=== PATIENT | female | born 1930 | race Caucasian/White ===

== ENCOUNTER → 2017-03-19 | Outpatient (CLI) | payer MEDICARE, OTHER ==
[~2017-03-19] MED LIST: ACTOS PO; ALDACTONE100 MG PO; ALDACTONE25 MG PO; ASPIRIN81 M2 PO; ATACAND PO; BUSPAR PO; BUSPAR5 M1 PO; CALTRATE PLUS T1 TAB PO; CLOPIDOGREL75 MG PO; DIPENTUM250 MG PO; ESOMEPRAZOLE MA40 MG; FLEXERIL PO; FOSAMAX PO; FUROSEMIDE40 MG PO; GLUCOTROL PO; HCTZ PO; IBUPROFEN PO; IMODIUM A-D2 M2; LANTUS SOL100 UNIT/1; LANTUS100 U/ML SUBQ; LASIX PO; LIPITOR PO; LISINOPRIL20 MG PO; LODINE400 MG PO; LOPRESSOR PO; METFORMIN HCL500 M1 PO; METFORMIN PO; NABUMETONE PO; NEXIUM 24HR20 MG PO; NEXIUM PO; NORVASC PO; NORVASC2.5 MG PO; NOVOLOG FL100 UNIT/1; PEPCID40 MG PO; PLAVIX PO; PREMARIN PO; PRINIVIL40 MG PO; TESSALON PERLE100 M1 PO; TOPROL XL PO; VITAMIN D1000 UNI1 PO; VITAMIN D1000 UNI2 PO; VITAMIN E100 UNI3; VITAMIN E800 UNIT PO; ZYRTEC10 M1 PO; ZYVOX600 MG PO; [UNRECOGNIZED DRUG - OTHER]
--- NOTE | ~2017-03-19 | CR151 ---
[facility] A Service of [facility] & [facility] RADIOLOGY TEXT RESULTS PATIENT: ABDOUL EPPERSON LOCATION: [facility] : 32 UNIT #: [id number] AGE: [address]: eSverino Dash MD SEX: F ORDER DR: [id number] [facility] [address] [place], [place] [address] [id number] O MR#: [id number] #: [id number] NAME: ABDOUL EPPERSON. : 1930 SEX: F STUDY DATE/TIME: 03/19/2017 11:12 UNIT: [facility] ROOM: STUDY DESCRIPTION: CR Hip Min 2 Views Rt Attending Physician: Severino Dash M.D. Ordering Physician: Severino Dash M.D. MEDICAL IMAGING REPORT This report is preliminary unless electronic signature is present EXAM Right hip 2 views HISTORY Right hip pain after fall 1 week ago. FINDINGS 2 views of the right hip demonstrate mild degenerative arthritis. Satisfactory hip alignment. No fracture or dislocation. Surgical clips overlie the right pelvis. IMPRESSION No acute findings the right hip. Mild degenerative arthritis. Dictated by... Parmjit Tran M.D. THIS IS AN ELECTRONICALLY VERIFIED REPORT Parmjit Tran M.D. at 03/19/2017 11:13 PM DFL/pcl TD: 03/19/2017 22:52 JOB #: [id number] MEDICAL IMAGING REPORT Page 1 of 1 COPY
== END | disposition home or self-care (01) ==
LOC: CRAD 10:52
DX: M25.551 Pain in right hip (principal); M16.11 Unilateral primary osteoarthritis, right hip
CPT/HCPCS: 73502

== ENCOUNTER → 2017-06-04 | Outpatient (CLI) | payer MEDICARE, OTHER ==
--- NOTE | ~2017-06-04 | MY26 ---
[facility] A Service of [facility] & [facility] RADIOLOGY TEXT RESULTS PATIENT: ABDOUL EPPERSON LOCATION: [facility] : 32 UNIT #: [id number] AGE: [address]: Severino Dash MD SEX: F ORDER DR: [id number] [facility] [address] [place], [place] [address] [id number] O MR#: [id number] Acc #: [id number] NAME: ABDOUL EPPERSON. : 1930 SEX: F STUDY DATE/TIME: 06/04/2017 10:28 UNIT: [facility] ROOM: STUDY DESCRIPTION: [facility] DIAGNOSTIC W/ CAD BILAT Attending Physician: Severino Dash M.D. Referring Physician: Severino Dash M.D. Ordering Physician: Severino Dash M.D. Primary Care Physician: Severino Dash M.D. MEDICAL IMAGING REPORT This report is preliminary unless electronic signature is present EXAMINATION Bilateral digital diagnostic mammogram with CAD. DATE 06/04/2017 HISTORY 86-year-old female with complaints of intermittent right breast palpable abnormality for 1 month. Previous history of fibrocystic changes of breast with previous history of 2 right breast biopsies, benign. COMPARISON Bilateral digital screening mammogram 08/02/2015, 07/30/2014. FINDINGS CC, MLO and true ML views were obtained of each breast utilizing digital technique and reviewed with an FDA-approved CAD device. Linear markers were placed over the right breast denoting surgical scars. Heterogeneously dense fibroglandular tissue is present bilaterally. A triangular marker was placed over the anterior right breast denoting the patient's site of palpable complaint. Immediately adjacent to this marker, there is a new approximately 1 cm nodular density close to the 12 o'clock axis subareolar region. Spot compression was performed of the right breast in the CC, and MLO planes, and this nodule becomes more defined, demonstrating irregular margins but no associated architectural distortion. Extensive but benign appearing calcifications are present within each breast, secretory, vascular, and round in morphology. No focal suspicious clustered microcalcification is seen. Of note, the secretory STS. [facility] A Service of [facility] & [facility] RADIOLOGY TEXT RESULTS PATIENT: ABDOUL EPPERSON LOCATION: [facility] : 32 UNIT #: [id number] AGE: [address]: Severino Dash MD SEX: F ORDER DR: calcifications in each breast appear increased since 2014. No abnormal skin thickening or nipple retraction is identified on either side. Targeted diagnostic right breast ultrasound was performed on this same date. In the 12 o'clock axis of the right breast near the site of patient's palpable complaint, an approximating 1.0 cm hypoechoic solid-appearing nodule is demonstrated. It demonstrates irregular margins, and appears to have a faint calcification embedded within it. This nodule is located within 3 mm of the superficial skin surface. There does appear to be a tiny hypoechoic solid satellite nodule immediately adjacent to it measuring 3 mm, also. These findings are suspicious for malignancy and correspond to the mammographic finding. Left breast mammogram today demonstrates stable fibronodular density in the lateral hemisphere compared to several prior exams. CC, MLO and true lateral views were obtained of each breast utilizing digital technique and reviewed with an FDA-approved CAD device. IMPRESSION 1. BIRADS category 4. Suspicious abnormality. Biopsy warranted. A 1 cm irregular nodule within the 12 o'clock subareolar right breast is seen mammographically and sonographically and corresponds to the patient's palpable complaint. On ultrasound, 3 mm satellite nodule is seen immediately adjacent to it, also suspicious for a site of potential malignancy, and this satellite nodule is located about 7 mm from the parent lesion. Ultrasound-guided core biopsy is recommended at this time. It is recognized that the patient is on baby aspirin, and it is recommended that the patient refrain from blood thinning agents for 5 days prior to biopsy, if possible. 2. The findings and recommendations were discussed in great detail with the patient today in the radiology department. They verbalized understanding. Additionally, breast surgical consultation is recommended. 3. I have contacted Lee Ann, the breast residential care facility manager, who is in the process of notifying Dr. Dash's office regarding these findings and recommendations. Patients over the age of 40 are entered into a reminder system with target due date for the next mammogram. A result letter will also be sent to the patient. BIRADS: 4 Suspicious abnormality; biopsy should be considered. Dictated by... [facility] A Service of [facility] RADIOLOGY TEXT RESULTS PATIENT: ABDOUL EPPERSON LOCATION: [facility] : 32 UNIT #: [id number] AGE: [address]: Severino Dash MD SEX: F ORDER DR: Princess Sage M.D. THIS IS AN ELECTRONICALLY VERIFIED REPORT Princess Sage M.D. at 06/09/2017 3:26 PM Hussein TD: 06/04/2017 22:55 JOB #: [id number] MEDICAL IMAGING REPORT Page 1 of 1 COPY
--- NOTE | ~2017-06-04 | US24 ---
[facility] A Service of [facility] RADIOLOGY TEXT RESULTS PATIENT: ABDOUL EPPERSON LOCATION: [facility] : 32 UNIT #: [id number] AGE: [address]: Severino Dash MD SEX: F ORDER DR: [id number] [facility] [address]. [place], [place] [address] [id number] O MR#: [id number] Acc #: [id number] NAME: ABDOUL EPPERSON. : 1930 SEX: F STUDY DATE/TIME: 06/04/2017 11:19 UNIT: [facility] ROOM: STUDY DESCRIPTION: US Breast Unilateral Attending Physician: Severino Dash M.D. Referring Physician: Severino Dash M.D. Ordering Physician: Severino Dash M.D. Primary Care Physician: Severino Dash M.D. MEDICAL IMAGING REPORT This report is preliminary unless electronic signature is present EXAM Right breast diagnostic ultrasound 06/04/2017 HISTORY 86-year-old female with intermittent palpable abnormality in the right breast for 1 month. COMPARISON Bilateral diagnostic mammogram 06/04/2017. Bilateral screening mammogram 08/02/2015, 05/30/2014. FINDINGS Targeted diagnostic right breast ultrasounds performed on this date at this site patient's palpable complaint. Please refer to the diagnostic mammogram report from the same day for full description mammographic sonographic findings and recommendations. IMPRESSION Right breast BIRADS category 4. Suspicious abnormality. Biopsy recommended. Please refer to the diagnostic mammogram report from the same day for full description mammographic and sonographic findings and recommendations. BIRADS: 4 Suspicious abnormality; biopsy should be considered. Dictated by... Princess Sage M.D. THIS IS AN ELECTRONICALLY VERIFIED REPORT [facility] A Service of [facility] & [facility] RADIOLOGY TEXT RESULTS PATIENT: ABDOUL EPPERSON LOCATION: [facility] : 32 UNIT #: [id number] AGE: [address]: Severino Dash MD SEX: F ORDER DR: Princess Sage M.D. at 06/09/2017 3:26 PM LLClaudia/omaira TD: 06/04/2017 22:59 JOB #: [id number] MEDICAL IMAGING REPORT Page 1 of 1 COPY
== END | disposition home or self-care (01) ==
LOC: CMAM 09:58
DX: N63 Unspecified lump in breast (principal); Z91.89 Other specified personal risk factors, not elsewhere classified
CPT/HCPCS: 76641; G0204

== ENCOUNTER → 2017-06-15 | Outpatient (CLI) | payer MEDICARE, OTHER ==
--- NOTE | ~2017-06-15 | EKG ---
PATIENT: ABDOUL EPPERSON UNIT #: [id number] Ventricular Rate: 61 BPM Atrial Rate: 61 BPM P-R Interval: 178 ms QRS Duration: 96 ms Q-T Interval: 450 ms QTC Calculation(Bezet): 453 ms P Laclede: 1 degrees Calculated R Laclede: -41 degrees Calculated T Laclede: 44 degrees Diagnosis Line: Normal sinus rhythm Diagnosis Line: Left axis deviation Diagnosis Line: Low voltage QRS Diagnosis Line: Cannot rule out Anterior infarct (cited on or Diagnosis Line: before 15-JUN-2017) Diagnosis Line: Abnormal ECG Diagnosis Line: When compared with ECG of 19-NOV-2016 14:51, Diagnosis Line: T wave inversion no longer evident in Inferior Diagnosis Line: leads Diagnosis Line: Confirmed by BOWEN ZEPEDA MD ([id number]) on Diagnosis Line: 06/18/2017 10:46:17 AM INTERPRETING MD: KATELYN ABRILLAS
[2017-06-15 11:42] LABS: ALBUMIN SERUM 3.3 g/dL (3.5-5.0); BILIRUBIN,TOTAL 2.8 mg/dL (0.2-2.0); BUN/CREATININE RATIO 19.33; CALCIUM SERUM 9.2 mg/dL (8.4-10.2); CREATININE SERUM 1.5 mg/dL (0.6-1.4); GLOM FILT RATE Estimated 31.7 mL/min (>60); POTASSIUM 5.3 mmol/L (3.5-5.1); PROTEIN TOTAL SERUM 5.9 g/dL (6.0-8.3)
== END | disposition home or self-care (01) ==
LOC: CAMB 09:00
PROVIDERS: Surgery
DX: Z01.818 Encounter for other preprocedural examination (principal)
CPT/HCPCS: 36415; 80053; 93005

== ENCOUNTER → 2017-06-16 | Day surgery (SDC) | payer MEDICARE, OTHER ==
--- NOTE | ~2017-06-16 | OR ---
Unit #: [id number] #: [id number] Patient: ABDOUL EPPERSON [id number] [address] [address] [id number] O MR#: [id number] NAME: ABDOUL EPPERSON ROOM: Date of Procedure: 06/16/2017 Admission Date: 06/16/2017 Surgeon: Rachid Goncalves M.D. : 1930 Attending Physician: Rachid Goncalves M.D. Primary Care Physician: Severino Dash M.D. OPERATIVE REPORT PREOPERATIVE DIAGNOSIS Palpable mass of right breast upper aspect. POSTOPERATIVE DIAGNOSIS Palpable mass of right breast upper aspect. PROCEDURE PERFORMED Lumpectomy of right breast upper aspect. ANESTHESIA General LMA anesthesia with 0.5% Marcaine plain local anesthesia. FINDINGS The area was excised and sent to Pathology. An additional inferior margin was sent. SPECIMENS Sent to Pathology. COMPLICATION None apparent. CONDITION The patient tolerated the procedure well. INDICATIONS FOR PROCEDURE The patient is an 86-year-old white female, who recently noticed a mass in her right breast at the 12 o'clock position. Mammography and ultrasound confirmed a suspicious 1 cm lesion with a 3 mm adjacent nodule on ultrasound. The patient was presented with the option of ultrasound-guided biopsy versus excision of the palpable mass. She wishes to proceed with excisional biopsy and lumpectomy. DESCRIPTION OF PROCEDURE After informed consent as well as receiving preoperative antibiotics and knee-high SCDs, the patient was brought to the operating room and after adequate general LMA anesthesia was obtained, had her right breast prepped and draped in a sterile fashion. A crescent-shaped incision was made over the palpable mass so that the overlying skin would be removed. It was made with a knife and then an electrocautery was used to divide the subdermal tissues and subcutaneous tissues down to the breast tissue. The area was excised circumferentially with good hemostasis and then sent to Unit #: [id number] #: [id number] Patient: ABDOUL EPPERSON Pathology. It was felt that the inferior margin was close and so an Allis clamp was used to grasp the inferior aspect of the biopsy cavity and an additional inferior margin was sent and oriented for the pathologist. The wound was irrigated, hemostasis obtained with Bovie, infiltrated with 0.5% Marcaine plain local anesthesia. The subdermal tissues were reapproximated with interrupted 3-0 Vicryl sutures and the skin was closed with 4-0 Vicryl subcuticular stitch. Benzoin and Steri-Strips were applied over the wound followed by a dry dressing and foam tape that was gently laid on it. The patient has had some tape sensitivity in the past. The patient went from the operating room to recovery room in stable condition. Dictated by... Suzette Peck/ritesh TD: 06/17/2017 05:40 JOB #: [id number] CC: [facility] . OPERATIVE REPORT Page 1 of 1 X Rachid Goncalves MD X PROCEDURE OPERATIVE NOTE
== END | disposition home or self-care (01) ==
LOC: CSUR 07:43
DX: C50.811 Malignant neoplasm of overlapping sites of right female breast (principal); D24.1 Benign neoplasm of right breast; N60.21 Fibroadenosis of right breast; I10 Essential (primary) hypertension; K21.9 Gastro-esophageal reflux disease without esophagitis; E11.9 Type 2 diabetes mellitus without complications; E03.9 Hypothyroidism, unspecified; J45.909 Unspecified asthma, uncomplicated; E78.5 Hyperlipidemia, unspecified; Z86.73 Personal history of transient ischemic attack (TIA), and cerebral infarction without residual deficits; Z88.5 Allergy status to narcotic agent; Z88.8 Allergy status to other drugs, medicaments and biological substances; Z79.4 Long term (current) use of insulin; Z79.82 Long term (current) use of aspirin; Z79.899 Other long term (current) drug therapy; Z90.49 Acquired absence of other specified parts of digestive tract; Z90.710 Acquired absence of both cervix and uterus; Z98.890 Other specified postprocedural states
CPT/HCPCS: 82947; 84132; 88305; 88307; J0690; J3010